=== PATIENT | male | born 1965 | race Asian ===

== ENCOUNTER 2022-08-13 13:00 | Emergency (ER) | payer OTHER ==
[~2022-08-13] VITALS: Ht 172.7 cm; Wt 79.0 kg
[2022-08-13 13:07] VITALS: TEMP 98.7; O2SAT 99
[2022-08-13 14:41] LABS: CLARITY URINE CLEAR (CLEAR); COLOR URINE YELLOW (YELLOW); KETONES URINE NEGATIVE (NEGATIVE); LEUKOCYTE ESTERASE URINE NEGATIVE (NEGATIVE); NITRITE URINE NEGATIVE (NEGATIVE); OCCULT BLOOD URINE NEGATIVE (NEGATIVE); PH URINE 6.5 (4.5-8.0); PROTEIN URINE NEGATIVE (NEGATIVE); SPECIFIC GRAVITY URINE 1.005 (1.005-1.030); UROBILINOGEN URINE 0.2 E.U./dL (0.2-1.0)
[2022-08-13] MEDS ORDERED: OXYB5TAB17 PO (15:23)
[2022-08-13 15:35] VITALS: BP 129/86; PULSE 88; RESP 16
== END 2022-08-13 15:56 | disposition home or self-care (01) ==
LOC: ER 13:00
DX: R30.0 Dysuria (principal)
CPT/HCPCS: 81003; 99283

== ENCOUNTER 2024-08-29 13:58 | Emergency (ER) | payer MEDICAID, OTHER ==
[~2024-08-29] VITALS: Ht 172.7 cm; Wt 78.0 kg
[~2024-08-29 13:58] MED LIST: OXYB-52 PO
[2024-08-29 14:39] VITALS: TEMP 36.8; O2SAT 98
[2024-08-29] MEDS ORDERED: CELE100C MT (16:36)
[2024-08-29 16:44] VITALS: BP 149/90; PULSE 58; RESP 16; O2SAT 99
== END 2024-08-29 16:49 | disposition home or self-care (01) ==
LOC: ER 14:31
DX: M65.342 Trigger finger, left ring finger (principal); Z98.890 Other specified postprocedural states; Z79.1 Long term (current) use of non-steroidal anti-inflammatories (NSAID); Z79.899 Other long term (current) drug therapy
CPT/HCPCS: 99283